=== PATIENT | male | born 1970 | race Caucasian/White ===

== ENCOUNTER 2016-09-15 21:37 | Emergency (ER) | payer SELFPAY ==
--- NOTE | ~2016-09-15 | ER ---
PATIENT'S NAME: HEENA DOSHI [facility] AGE: 46 Y [address] ROOM: [place] [address] LOCATION: [facility] ADMIT DATE: 09/15/2016 ER/Outpatient Report DISCHARGE DATE: 09/15/2016 FAMILY PHYSICIAN: Physician, Unknown ATTENDING PHYSICIAN: Lynne Rodriguez A HISTORY OF PRESENT ILLNESS: This is a 46-year-old male who comes from [place] who presents today with a chief complaint of back spasm and states that he has numbness in his legs as well although that is not new. The back pain is not new either, but it is worse since he fell yesterday at 8 p.m. The patient reports the pain is a 9/10. He was previously seen at [facility] earlier today for which he received a shot of Dilaudid and some nailing and had this workup for these episodes he was having. His describes them as episodes where he has like a tremor in his right hand and then falls asleep and then wakes up very startled and she says that these episodes of unresponsiveness last a minute or 2 minute; so, at most then he wakes up and he is very, very startled. We will attempt to get more of the paperwork from [facility] as well and the patient denies any urinary symptoms though. His says that they had a full workup done at [facility] including blood work, CT head, and they were told all of that was negative. PAST MEDICAL HISTORY: Includes previous back injury, degenerative arthritis, GERD, COPD, asthma, and hep C. PAST SURGICAL HISTORY: Include appendectomy, heart cath x2. SOCIAL HISTORY: He quit August 21, 2016, but used to smoke a lot. He uses marijuana. He denies any other drug use and he says he does not do anything for his pain except for marijuana. MEDICATIONS: Please see med list. ALLERGIES: NONE. REVIEW OF SYSTEMS: Reviewed by me and negative with the exception of those discussed in the HPI. PHYSICAL EXAMINATION: VITAL SIGNS: The patient is 6 feet tall, he weighs 80.2 kilos. Blood PATIENT'S NAME: HEENA DOSHI [facility] AGE: 46 Y [address] ROOM: [place] [address] LOCATION: [facility] ADMIT DATE: 09/15/2016 ER/Outpatient Report DISCHARGE DATE: 09/15/2016 FAMILY PHYSICIAN: Physician, Unknown ATTENDING PHYSICIAN: Lynne Rodriguez pressure 129/96, heart rate 94, respiratory rate 20, temp is 96.4, and sats are 98% on room air. GENERAL: The patient was brought in a wheelchair and he had to be generally weak, but needed to have help to be transferred to the bed. He is lying on his right-side, looks uncomfortable. He has a right-hand tremor that is not necessarily intentional or resting and it just sort of comes on and off. When I asked him to do certain things or like when I distract him, when I tell him to move his legs or anything, his tremor stops; so, he is alert and oriented x4. GCS is 15. He seems slightly sleepy at this time. He has almost pinpoint pupils, but they constrict appropriately in reaction to light and no signs of head trauma. No C-spine tenderness. HEART: His heart rate is regular rate and rhythm. LUNGS: His lungs sounds are diminished throughout, but no wheezing, rales, or rhonchi. ABDOMEN: Soft, nontender, nondistended. SKIN: Warm, dry, and intact. BACK: He has some lower thoracic spine tenderness and some lumbar spine tenderness where he also has a lidocaine patch in place as well. NEURO: Strength in the right lower extremity was maybe a 2/5; although, poor effort with the same as on the left side 2/5, but he has normal reflexes bilaterally, bilateral Babinski, downward going, intact sensation bilateral lower extremities to sharp and dull testing. He was able to do finger-nose- finger testing as well although with a slight tremor. He is able to answer questions appropriately. Intact bilateral grasp strength. No pronator drift. EMERGENCY ROOM COURSE: I did discuss with the family that we are not going to give him any pain meds at this time as he appears still sleepy. The is really concerned that he has this episode where he sort of fall asleep and comes through. The concern would be something like absence seizures or something drug-related. With that, we did go ahead and do some blood work. His CBC: WBC 7.5, H and H 11.7/35.7, and platelets are 220. No bandemia. CMS: His sodium 140, potassium 3.5, chloride 106, CO2 26, anion gap 11.5, glucose 84, BUN 12, and creatinine 1.2. His bilirubin is 0.5, alk phos is 123, AST is 23, ALT is 38, and GFR is greater than 60. His ammonia level is 22, his prolactin is 7.5, and that is normal range as well. We also contacted [facility] to see what had been done earlier that day. I reviewed all the imaging that they did and the blood work that they did. There is nothing acute going on. His CT head was also within normal limits. Based on their notes, the patient is pretty well-known to that ER as he comes in quite frequently for pain control for his back pain even though the patient and his themselves tell me he does not do anything for back pain at home except for marijuana. I also reviewed the workup that they did for this periods of unresponsiveness. They did a CT head, which was negative, and he stopped shaking, and opened his eyes once he received his pain meds. The patient is asking me for Ativan at this PATIENT'S NAME: HEENA DOSHI [facility] AGE: 46 Y [address] ROOM: [place] [address] LOCATION: [facility] ADMIT DATE: 09/15/2016 ER/Outpatient Report DISCHARGE DATE: 09/15/2016 FAMILY PHYSICIAN: , Dejan ATTENDING PHYSICIAN: Lynne Rodriguez A time for his pain. His urine there was also negative for any infection. His urine drug screen there was negative for amphetamines, barbiturates, benzos, cocaine, opiates, phencyclidines, but it was positive for oxycodone and positive for THC. Apparently, the patient's family was really shocked that he was positive for oxycodone, but then he did admit to taking OxyContin at home and then retracted it. The imaging that was done there at the lumbar spine was reviewed as moderate lumbar spine degenerative changes, but no evidence of fracture. Discussed this with the patient and his family. He does not have any tremors right now. His eyes are open and he is looking around. He would not give him anything else for pain. I told him that the Valium and Dilaudid that they got earlier today is probably a lot to may be too much for him since he only takes marijuana at home for pain. So, I doubt these are like absence seizures, may be related to [id number] back pain. They do have followup with a doctor in [place]. They could follow up at the [facility] with the neurosurgeon; so, they will go and see him and he may need to see his pain specialist as well. All questions were answered. The patient was able to get into the wheelchair without any real help and was able to get himself out of the wheelchair into the car and lift his legs up into the car without any difficulty. IMPRESSION: [id number] back pain. MD RANGEL HENDERSON/hussain /[id number] d: 09/16/16 0445 t: 09/19/16 1818, OUTPATIENT REPORT
[2016-09-15 22:51] LABS: BASOPHIL # 0.1 K/uL (0.0-0.2); BASOPHIL % 0.7 %; EOSINOPHIL # 0.4 K/uL (0.0-0.5); EOSINOPHIL % 5.7 %; HEMATOCRIT 40.4 % (37.0-53.0); HEMOGLOBIN 14.3 g/dL (12.0-17.0); IMMATURE GRANULOCYTE % 0.1 %; LYMPHOCYTE # 2.4 K/uL (0.8-4.0); LYMPHOCYTE % 34.1 %; MCH 32.1 pg (27.0-34.0); MCHC 35.4 gm/dL (32.0-36.5); MCV 90.6 fl (83.0-98.0); MONOCYTE # 0.8 K/uL (0.0-1.0); MONOCYTE % 11.7 %; MPV 9.4 fl (9.4-12.4); NEUTROPHIL # (ANC) 3.3 K/uL (1.4-9.0); NEUTROPHIL % 47.7 %; NRBC % 0 /100WBC (0-0.00); PLATELET COUNT 298 K/uL (150-450); RBC 4.46 M/uL (4.00-6.00); RDW-CV 12.3 % (11.9-14.6); WBC 6.9 K/uL (4.0-11.0)
[2016-09-15 23:08] LABS: ALBUMIN 3.6 gm/dL (3.5-5.0); ALK PHOS 123 IU/L (33-138); ALT 30 IU/L (12-78); ANION GAP 11.5 (10.0-19.0); AST 23 IU/L (10-40); BLOOD UREA NITROGEN 12 mg/dL (6-24); CALCIUM 8.6 mg/dL (8.5-10.5); CHLORIDE 106 mMol/L (96-110); CO2 26 mMol/L (22-32); CREATININE 1.2 mg/dL (0.6-1.3); ESTIMATED GFR (MDRD EQUATION) > 60; POTASSIUM 3.5 mMol/L (3.7-5.1); SODIUM 140 mMol/L (135-145); TOTAL BILIRUBIN 0.5 mg/dL (0.0-1.5); TOTAL PROTEIN 8.2 g/dL (6.0-8.4)
== END 2016-09-15 23:22 | disposition disaster alternative care site (69) ==
LOC: GMED 21:37
PROVIDERS: Emergency Medicine
DX: M54.6 Pain in thoracic spine (principal); M54.5 Low back pain; G89.29 Other chronic pain; K21.9 Gastro-esophageal reflux disease without esophagitis; J44.9 Chronic obstructive pulmonary disease, unspecified; J45.909 Unspecified asthma, uncomplicated; M19.90 Unspecified osteoarthritis, unspecified site; Z90.49 Acquired absence of other specified parts of digestive tract; Z79.899 Other long term (current) drug therapy